=== PATIENT | male | born 1985 | race American Indian/Alaskan Native ===

== ENCOUNTER 2020-12-07 02:03 | Emergency (ER) | payer MEDICAID ==
[2020-12-07 04:10] VITALS: BP 132/100
[2020-12-07 05:25] LABS: Basophils % (Auto) 0.7 % (0.0-1.8); Eosinophils # (Auto) 0.2 K/mm3 (0.0-0.4); Eosinophils % (Auto) 3.1 % (0.0-4.3); Hematocrit 38.5 % (35.5-45.6); Hemoglobin 13.3 gm/dl (11.8-15.2); Lymphocytes # (Auto) 2.7 K/mm3 (1.2-5.4); Lymphocytes % (Auto) 39.2 % (13.4-35.0); Mean Corpuscular HGB Conc 34 % (32-34); Mean Corpuscular Volume 88 fl (84-94); Monocytes # (Auto) 0.4 K/mm3 (0.0-0.8); Monocytes % (Auto) 5.4 % (0.0-7.3); Platelet Count 210 K/mm3 (140-440); Red Blood Count 4.39 M/mm3 (3.65-5.03); Red Cell Distribution Width 14.8 % (13.2-15.2)
[2020-12-07 05:29] LABS: Alanine Aminotransferase 51 units/L (7-56); Albumin 4.7 g/dL (3.9-5); BUN/Creatinine Ratio 7; Blood Urea Nitrogen 6 mg/dL (9-20); Calcium 8.4 mg/dL (8.4-10.2); Hemolysis Index 4
[2020-12-07] MEDS ORDERED: THIAMINE 100 MG, FOLIC ACID 1 MG, MULTIPLE VITAMIN INJ, ADULT 10 ML in SODIUM CHLORIDE ... IV ONE (05:38)
--- NOTE | 2020-12-07 06:30 | XRay Report ---
CHEST 1 VIEW INDICATION / CLINICAL INFORMATION: SOB. Dyspnea FINDINGS: SUPPORT DEVICES: None. HEART / MEDIASTINUM: No significant abnormality. LUNGS / PLEURA: No significant pulmonary or pleural abnormality. No pneumothorax. ADDITIONAL FINDINGS: No significant additional findings. IMPRESSION: 1. No acute findings. Signer Name: Luca Calloway MD Signed: 12/07/2020 6:26 AM Workstation Name: [id number]
--- NOTE | 2020-12-07 07:45 | Emergency Department Report ---
ED Alcohol HPI - General Chief Complaint: Alcohol Stated Complaint: INTOXICATION Time Seen by Provider: 12/07/20 06:21 Source: EMS Mode of arrival: Stretcher Limitations: Other - History of Present Illness Initial Comments: 35-year-old male with unclear past medical history presents to the hospital intoxicated drinking alcohol and inhaling manager hotel bug spray. Patient presents to the hospital with air freshener spray and 2 bottles of manager hotel bug spray. He is drowsy and only nods in response to questions. He endorses a history of daily alcohol use and history of alcohol withdrawal tremors. RN spoke to poison control Spoke with Poison Control @[phone] in regards to patient ingesting Vehicle Inspector. Per Poison Control recommendation the patient need to be observed for [address] monitor. Patient need to have CBC, CMP, Blood gas, chest x ray, Tylenol and Alcohol level drawn. Watch for [employer], respiratory depression, pulmonary emb olism, seizures, cyanosis, dysrhythmias and myocardial ischemia. Patient is to be given Benzos if he does have a seizure and avoid phenytoin - Related Data Allergies Allergy/AdvReac Type Severity Reaction Status Date / Time No Known Allergies Allergy Verified 12/07/20 04:09 ED Review of Systems ROS: Stated complaint: INTOXICATION Other details as noted in HPI Comment: All other systems reviewed and negative ED Physical Exam - General Limitations: Other - Other Other exam information: General: No acute distress Head: Atraumatic Eyes: normal appearance ENT: Moist mucous membranes Neck: Normal appearance, no midline tenderness Chest: Clear to auscultation bilaterally CV: Regular rate and rhythm Abdomen: Soft, normal bowel sounds, nontender, nondistended, no rebound or guarding Back: Normal inspection Extremity: Normal inspection, full range of motion Neuro: Drowsy, arousable to aggressive tactile stimulation, moves all extremities Skin: No rash ED Course Vital Signs 12/07/20 12/07/20 12/07/20 04:09 07:21 07:31 Temperature 97.8 F Pulse Rate 87 77 82 Respiratory 16 23 21 Rate Blood Pressure 132/100 [Left] O2 Sat by Pulse 96 94 96 Oximetry 12/07/20 12/07/20 12/07/20 07:45 08:01 08:15 Temperature Pulse Rate 92 H 89 85 Respiratory 22 25 H 24 Rate Blood Pressure [Left] O2 Sat by Pulse 97 98 96 Oximetry 12/07/20 12/07/20 08:31 09:13 Temperature Pulse Rate 95 H Respiratory 20 18 Rate Blood Pressure [Left] O2 Sat by Pulse 96 100 Oximetry - Reevaluation(s) Reevaluation #1: 12/07/20 11:56 Patient is awake with steady gait with no signs of tremors. He is belligerent and not completely cooperate with questions. He does admit to drinking alcohol daily. He cannot recall how he got here. He is trying to remember his mom's number and his "baby mama's" address of someone can come pick him up. Patient refused ABG attempt ED stay but has been here greater than to suggest to 8 hours and is awake and appears to be at baseline Pt reaching into patient tray conta iner to get food. He was told not to and provide something to eat.repeat bp requested if pt will allow it ED Medical Decision Making - Lab Data Result diagrams: 12/07/20 04:48 12/07/20 04:48 Lab Results 12/07/20 12/07/20 12/07/20 Range/Units 04:48 04:48 04:48 WBC 6.9 (4.5-11.0) K/mm3 RBC 4.39 (3.65-5.03) M/mm3 Hgb 13.3 (11.8-15.2) gm/dl Hct 38.5 (35.5-45.6) % MCV 88 (84-94) fl MCH 30 (28-32) pg MCHC 34 (32-34) % RDW 14.8 (13.2-15.2) % Plt Count 210 (140-440) K/mm3 Lymph % (Auto) 39.2 H (13.4-35.0) % Morrison % (Auto) 5.4 (0.0-7.3) % Eos % (Auto) 3.1 (0.0-4.3) % Baso % (Auto) 0.7 (0.0-1.8) % Lymph # (Auto) 2.7 (1.2-5.4) K/mm3 Morrison # (Auto) 0.4 (0.0-0.8) K/mm3 Eos # (Auto) 0.2 (0.0-0.4) K/mm3 Baso # (Auto) 0.0 (0.0-0.1) K/mm3 Seg Neutrophils % 51.6 (40.0-70.0) % Seg Neutrophils # 3.6 (1.8-7.7) K/mm3 Sodium 140 (137-145) mmol/L Potassium 4.1 (3.6-5.0) mmol/L Chloride 101.4 (98-107) mmol/L Carbon Dioxide 21 L (22-30) mmol/L Anion Gap 22 mmol/L BUN 6 L (9-20) mg/dL Creatinine 0.9 (0.8-1.3) mg/dL Estimated GFR > 60 ml/min BUN/Creatinine Ratio 7 % Glucose 250 H (75-100) mg/dL Calcium 8.4 (8.4-10.2) mg/dL Total Bilirubin 0.50 (0.1-1.2) mg/dL AST 54 H (5-40) units/L ALT 51 (7-56) units/L Alkaline Phosphatase 97 (35-129) units/L Total Protein 7.3 (6.3-8.2) g/dL Albumin 4.7 (3.9-5) g/dL Albumin/Globulin Ratio 1.8 % Salicylates < 0.3 L (2.8-20.0) mg/dL Acetaminophen (10.0-30.0) ug/mL Plasma/Serum Alcohol (0-0.07) % 12/07/20 12/07/20 Range/Units 04:48 04:48 WBC (4.5-11.0) K/mm3 RBC (3.65-5.03) M/mm3 Hgb (11.8-15.2) gm/dl Hct (35.5-45.6) % MCV (84-94) fl MCH (28-32) pg MCHC (32-34) % RDW (13.2-15.2) % Plt Count (140-440) K/mm3 Lymph % (Auto) (13.4-35.0) % Morrison % (Auto) (0.0-7.3) % Eos % (Auto) (0.0-4.3) % Baso % (Auto) (0.0-1.8) % Lymph # (Auto) (1.2-5.4) K/mm3 Morrison # (Auto) (0.0-0.8) K/mm3 Eos # (Auto) (0.0-0.4) K/mm3 Baso # (Auto) (0.0-0.1) K/mm3 Seg Neutrophils % (40.0-70.0) % Seg Neutrophils # (1.8-7.7) K/mm3 Sodium (137-145) mmol/L Potassium (3.6-5.0) mmol/L Chloride (98-107) mmol/L Carbon Dioxide (22-30) mmol/L Anion Gap mmol/L BUN (9-20) mg/dL Creatinine (0.8-1.3) mg/dL Estimated GFR ml/min BUN/Creatinine Ratio % Glucose (75-100) mg/dL Calcium (8.4-10.2) mg/dL Total Bilirubin (0.1-1.2) mg/dL AST (5-40) units/L ALT (7-56) units/L Alkaline Phosphatase (35-129) units/L Total Protein (6.3-8.2) g/dL Albumin (3.9-5) g/dL Albumin/Globulin Ratio % Salicylates (2.8-20.0) mg/dL Acetaminophen 5.0 L (10.0-30.0) ug/mL Plasma/Serum Alcohol 0.33 H (0-0.07) % - EKG Data -: EKG Interpreted by Me EKG shows normal: sinus rhythm, intervals (QTC 440, [place] normal), QRS complexes (QRS duration 88), ST-T waves (no stemi) Rate: normal - EKG Data When compared to previous EKG there are: previous EKG unavailable - Radiology Data Radiology results: report reviewed Chest x-ray: No acute findings - Medical Decision Making 35-year-old alcoholic male presents to the hospital with acute alcohol intoxication also recent huffing of air freshener and throat insecticide spray Critical Care Time: No Critical care attestation.: If time is entered above; I have spent that time in minutes in the direct care of this critically ill patient, excluding procedure time. ED Disposition Clinical Impression: Acute alcohol intoxication, Huffing Disposition: 01 HOME / SELF CARE / HOMELESS Is pt being admited?: No Does the pt Need Aspirin: No Condition: Stable Instructions: Inhalant Use Disorder, Alcohol Abuse and Dependence Information, Adult Additional Instructions: SUBSTANCE ABUSE PROGRAMS: Sober Living [facility]: Location: [place], [place] [employer] Address: [address] [place] [address] [facility]: Address: [address] [place] [address] [facility]: Address: [address] [place] [address] [facility]: Address: [address] [place] [address] Referrals: [facility] [Outside] - 3-5 Days Time of Disposition: 12:02
--- NOTE | 2020-12-09 11:14 | Electrocardiograph Report ---
[facility] Test Date: 2020-12-07 Test Time: 05:58:13 Pat Name: MARK SORIA Department: Room: Gender: M [employer]: LAYLA : 1985 Requested By: ED DOC Order Number: [id number] Reading MD: Wilfred Soto Measurements Intervals Bazine Rate: 84 P: 63 NH: 193 QRS: 18 QRSD: 88 T: 11 QT: 372 QTc: 440 Interpretive Statements Sinus rhythm Left ventricle hypertrophy No previous ECG available for comparison Electronically Signed On 12-09-2020 11:14:16 EDT by Wilfred Soto
== END 2020-12-07 12:06 | disposition home or self-care (01) ==
LOC: ED 02:03
DX: F10.129 Alcohol abuse with intoxication, unspecified (principal)
CPT/HCPCS: 36415; 71045; 80053; 85025; 93005; 99284; J3411; J7030; 80320; G0480